=== PATIENT | female | born 1990 | race Hispanic/Latino ===

== ENCOUNTER → 2016-11-20 | Outpatient (CLI) | payer OTHER ==
[~2016-11-20] MED LIST: DOCU-143 PO; HYDR-3812 PO; OMEP20TA7 PO
--- NOTE | 2016-11-20 11:27 | Diagnostic Imaging Report ---
PROCEDURE: US Gallbladder. TECHNIQUE: Multiple real-time grayscale images were obtained over the right upper quadrant in various projections. INDICATION: Abdominal pain. FINDINGS: The pancreas is largely obscured. The liver is fairly homogeneous with no focal lesion. The CBD is obscured. The gallbladder demonstrates multiple mobile stones. No pericholecystic fluid or gallbladder wall thickening. The right kidney is 8.6 cm in length with no hydronephrosis or focal lesion. There is no significant fluid collection in the right upper quadrant. Sonographic Matute sign is reportedly positive. IMPRESSION: Multiple gallstones. Although no imaging findings otherwise of acute cholecystitis are present, sonographic Matute sign was reportedly positive. Correlate clinically. Dictated by: Dictated on workstation # [id number]
== END ==
LOC: RAD 09:29
PROVIDERS: ATTEND Nurse Practitioner Community Health
DX: K80.20 Calculus of gallbladder without cholecystitis without obstruction (principal)
CPT/HCPCS: 76705

== ENCOUNTER 2016-12-03 13:05 | Outpatient (CLI) | payer OTHER ==
[~2016-12-03] VITALS: Ht 162.6 cm; Wt 85.3 kg
[2016-12-03] MEDS ORDERED: OMEP20TA7 PO (13:17)
[2016-12-03 13:21] VITALS: BP 126/71
[2016-12-03 13:57] LABS: BASOPHILS % (AUTO) 0 % (0-10); EOSINOPHILS # (AUTO) 0.1 10^3/uL (0.0-0.3); EOSINOPHILS % (AUTO) 1 % (0-10); LYMPHOCYTES % (AUTO) 43 % (12-44); MEAN CORPUSCULAR HEMOGLOBIN 29 PG (25-34); MEAN CORPUSCULAR HGB CONC 34 G/DL (32-36); MEAN CORPUSCULAR VOLUME 83 FL (80-99); MONOCYTES # (AUTO) 0.4 X 10^3 (0.0-1.0); MONOCYTES % (AUTO) 5 % (0-12); NEUTROPHILS # (AUTO) 3.5 X 10^3 (1.8-7.8); NEUTROPHILS % (AUTO) 50 % (42-75); PLATELET COUNT 256 10^3/uL (130-400); RED BLOOD COUNT 4.52 10^6/uL (4.35-5.85); RED CELL DISTRIBUTION WIDTH 12.9 % (10.0-14.5); WHITE BLOOD COUNT 7.1 10^3/uL (4.3-11.0)
== END 2016-12-03 15:13 | disposition home or self-care (01) ==
LOC: PREOP 13:05
PROVIDERS: ATTEND Surgery
DX: Z01.812 Encounter for preprocedural laboratory examination (principal); Z11.2 Encounter for screening for other bacterial diseases; K80.20 Calculus of gallbladder without cholecystitis without obstruction
CPT/HCPCS: 36415; 85025; 87081

== ENCOUNTER 2016-12-06 07:40 | Day surgery (SDC) | payer OTHER ==
[~2016-12-06] VITALS: Ht 162.6 cm; Wt 85.3 kg
[~2016-12-06 07:40] MED LIST changes: -DOCU-143 PO; -HYDR-3812 PO
--- OUTSIDE RECORDS SUMMARY | 2016-12-06 07:48 | XMS REPORT | Continuity of Care Document ---
Author Author [facility] Organization [facility] Address Unknown Phone Unavailable Care Team Providers Care Rim Turning Finisher Name Role Phone [facility] PCP Insurance Providers Payer Name Policy Number Subscriber Name Relationship Self Pay Pending Leora Apprv [id number] Stephanie Thomas 16 Self / Same As Patient Advance Directives Directive Response Recorded Date/Time Advance Directives No 12/03/16 1:14pm Health Care Power of Health Policy Manager No 12/03/16 1:14pm Resuscitation Status Full Code 12/03/16 1:14pm Problems No problem information available. Medications Current Home Medications Medication Dose Units Route Directions Days/Qty Instructions Start Date Omeprazole 20 Mg 20 Mg Oral Daily 12/03/16 Social History Social History Problem Response Recorded Date/Time Alcohol Use Denies Use 12/03/2016 1:14pm Recreational Drug Use No 12/03/2016 1:14pm Recent Foreign Travel No 12/03/2016 1:13pm Recent Infectious Disease Exposure No 12/03/2016 1:13pm Sexually Transmitted Disease No 12/03/2016 1:14pm HIV/AIDS No 12/03/2016 1:14pm Smoking Status Never a Smoker 12/03/2016 1:14pm Recent Hopitalizations No 12/03/2016 1:14pm Sexually Transmitted Disease No 12/03/2016 1:14pm Query Response Start Date Stop Date Smoking Status Never a Smoker Hospital Discharge Instructions No hospital discharge instructions. Plan of Care Discharge Date 12/03/16 3:13pm Prescriptions See Medication Section Functional Status No functional status results. Allergies, Adverse Reactions, Alerts No known allergies. Immunizations No immunization records. Vital Signs Acute Vital Signs Vital Response Date/Time Pulse Rate (adult) 55 bpm (60 - 90) 12/03/2016 1:21pm Respiratory Rate 16 bpm (12 - 24) 12/03/2016 1:21pm O2 Sat by Pulse Oximetry 100 % (88 - 100) 12/03/2016 1:21pm Blood Pressure 126/71 mm Hg 12/03/2016 1:21pm Blood Pressure Mean 89 mm Hg 12/03/2016 1:21pm Pain Numeric Pain Scale 0-No Pain 12/03/2016 1:21pm Height (Feet) 5 feet 12/03/2016 1:12pm Height (Inches) 4.00 inches 12/03/2016 1:12pm Height (Calculated Centimeters) 162.099964 cm 12/03/2016 1:12pm Weight (Pounds) 188 pounds 12/03/2016 1:12pm Weight (Ounces) 1.0 oz 12/03/2016 1:12pm Weight (Calculated Grams) 85270.72 gm 12/03/2016 1:12pm Weight (Calculated Kilograms) 85.240699 kilograms 12/03/2016 1:12pm Calculated BMI 32.3 12/03/2016 1:12pm Results Pending Laboratory Results Test Name Collection Date/Time Procedures No known history of procedures. Encounters Encounter Location Arrival/Admit Date Discharge/Depart Date Attending Provider Departed Clinic [facility] 12/03/16 1:05pm 12/03/16 3: 13pm BAKARI PERKINS DO Registered Clinic [facility] 11/20/16 9:29am TERESA PLASENCIA
--- OUTSIDE RECORDS SUMMARY | 2016-12-06 07:48 | XMS REPORT | Continuity of Care Document ---
Author Author [facility] Organization [facility] Address Unknown Phone Unavailable Care Team Providers Care Girls Swimming Coach Name Role Phone [facility] PCP Insurance Providers Payer Name Policy Number Subscriber Name Relationship Self Pay Pending Leora Apprv [id number] Stephanie Thomas 16 Self / Same As Patient Advance Directives Directive Response Recorded Date/Time Advance Directives No 12/03/16 1:14pm Health Care Power of Boiler House Inspector No 12/03/16 1:14pm Resuscitation Status Full Code [...] 4.00 inches 12/03/2016 1:12pm Height (Calculated Centimeters) 162.081491 cm 12/03/2016 1:12pm Weight (Pounds) 188 pounds 12/03/2016 1:12pm Weight (Ounces) 1.0 oz 12/03/2016 1:12pm Weight (Calculated Grams) 41996.72 gm 12/03/2016 1:12pm Weight (Calculated Kilograms) 85.967479 kilograms 12/03/2016 1:12pm Calculated BMI 32.3 12/03/2016 1:12pm Results Pending Laboratory Results Test Name Collection Date/Time Procedures No known history of procedures. Encounters Encounter Location Arrival/Admit Date Discharge/Depart Date Attending Provider Departed Clinic [facility] 12/03/16 1:05pm 12/03/16 3: 13pm BAKARI PERKINS DO Registered Clinic [facility] 11/20/16 9:29am TERESA PLASENCIA
[2016-12-06] MEDS ORDERED: FAMOTIDINE 20MG/2ML IV (PEPCID) IV ONE (08:15)
[2016-12-06] MEDS ORDERED: ceFAZolin 2 GM IV (SDC ONLY) 50 ML ONE (08:18)
[2016-12-06] MEDS: LACTATED RINGERS 1,000 ML IV PRN ×2 (08:40→10:15)
[2016-12-06 08:51] VITALS: BP 119/72
[2016-12-06] MEDS ORDERED: LIDOCAINE 1% INJ 20 ML (XYLOCAINE) VIAL ONE (08:57)
[2016-12-06] MEDS ORDERED: BUPIVACAINE 0.5% 30 ML (SENSORCAINE) VIAL ONE (08:57)
[2016-12-06] MEDS ORDERED: ceFAZolin 2 GM IV (SDC ONLY) 50 ML IV ONE (09:00)
[2016-12-06] MEDS ORDERED: proPOfol 200 MG/20 ML (DIPRIVAN) VIAL IV ONE (09:28)
[2016-12-06] MEDS ORDERED: SEVOFLURANE (ULTANE) 15 ML INHAL SOLN ONE ×4 (09:28→11:10)
[2016-12-06] MEDS ORDERED: DEXAMETHASONE PF 10 MG/ML (DECADRON) VIAL ONE (09:28)
[2016-12-06] MEDS ORDERED: ONDANSETRON 4 MG/2 ML (SDV) Z0FRAN ONE (09:28)
[2016-12-06] MEDS ORDERED: LACTATED RINGERS 1,000 ML IV ONE ×2 (09:28→10:19)
[2016-12-06] MEDS ORDERED: LIDOCAINE PF 2% 10 ML (XYLOCAINE) AMP ONE (09:28)
[2016-12-06] MEDS ORDERED: fentaNYL INJECTION 100 MCG/2 ML AMP ONE (09:29)
[2016-12-06] MEDS ORDERED: MIDAZOLAM 2 MG/2 ML (VERSED) VIAL ONE (09:29)
--- NOTE | 2016-12-06 09:42 | Progress Note-Pre Operative ---
Pre-Operative Progress Note H&P Reviewed The H&P was reviewed, patient examined and no changes noted. Date H&P Reviewed: Dec 06, 2016 Time H&P Reviewed: 09:42 Pre-Operative Diagnosis: SYMPTOMATIC CHOLELITHIASIS BAKARI PERKINS DO Dec 06, 2016 09:42
--- NOTE | 2016-12-06 11:04 | Progress Note-Post Operative ---
Post-Operative Progess Note Optician Dr. Garcia Pre-Operative Diagnosis SYMPTOMATIC CHOLELITHIASIS Post-Operative Diagnosis same Post-Op Procedure Note Date of Procedure: Dec 06, 2016 Name of Procedure: lap miroslava c ioc Procedure Note/Findings see note Anesthesia Type general Estimated blood loss (mL): minimal Specimen(s) collected gallbladder BAKARI PERKINS DO Dec 06, 2016 11:04
[2016-12-06] MEDS ORDERED: DOCU-143 PO (11:05)
[2016-12-06] MEDS ORDERED: HYDR-3812 PO (11:05)
--- NOTE | 2016-12-06 11:06 | Discharge Inst-Simple/Standard ---
Discharge Inst-Standard Discharge Medications New, Converted or Re-Newed RX: RX on Chart Patient Instructions/Follow Up Plan of Care/Instructions/FU: 2 weeks Radha Activity as Tolerated: No Discharge Diet: Regular Diet Other Inst to Patient Follow up Appt: Make appointment for 2 weeks. Instructions: No lifting greater than 10 pounds. No strenuous activity. May shower in 24 hours, no tub bath or soaking. Use incentive spirometer at home as directed. No Smoking Skin/Wound Care: May remove bandages in 24 hours. You need to leave the white strips over incision on they will fall off on their own. Symptoms to Report: Appetite Changes, Extremity Discoloration, Numbness/Tingling, Swelling Increased , Bleeding Excessive, Eyesight Changes, Pain Increased, Urine Color Change, Constipation(Persistent), Fever over 101 degree F, Pain/Pressure in chest, Urinating Difficulty, Cough Up/Vomit Blood, Heart Beat Irreg/Pounding, Pain/ Pressure in jaw, Vaginal Bleeding Increase, Cramps in feet or legs, Lightheadedness, Pain/Pressure in shoulder, Diarrhea(Persistent), Memory Changes Suddenly, Questions/Concerns, Weight gain consecutive days, Dizziness/ Fainting, Nausea/Vomiting, Shortness of Breath, Weight gain over 2 pounds. If eyes or skin turn yellow notify physician. If questions or concerns contact your physician Or seek help at emergency department. BAKARI PERKINS DO Dec 06, 2016 11:06
[2016-12-06] MEDS ORDERED: HYDROcodone/APAP 5 MG/325 MG (LORTAB) TAB PO PRN (11:15)
[2016-12-06] MEDS ORDERED: MEPERIDINE (DEMEROL) INJ 50 MG/ML IVP PRN (11:30)
[2016-12-06] MEDS ORDERED: ONDANSETRON 4 MG/2 ML (SDV) Z0FRAN IVP PRN (11:30)
[2016-12-06] MEDS: morphine INJ 10 MG/ML 1ML (SYR OR VIAL) IVP PRN ×2 (11:37→11:54)
--- NOTE | 2016-12-06 12:09 | Diagnostic Imaging Report ---
EXAMINATION: Intraoperative cholangiogram. INDICATION: Cholecystectomy performed by Dr. Garcia. Abdominal pain. 8 seconds of fluoroscopy time utilized. 4 cc of Omnipaque 300 is used. FINDINGS: Injection through the cystic duct is performed with contrast filling the CBD and intrahepatic ducts which are normal in caliber. There is prompt emptying of contrast into the duodenum with no evidence of obstruction or filling defect. IMPRESSION: No evidence of CBD stone or obstruction. Dictated by: Dictated on workstation # [id number]
[2016-12-06 12:20] VITALS: BP 129/79
[2016-12-06 12:50] VITALS: BP 129/99
[2016-12-06 13:20] VITALS: BP 128/72
[2016-12-06 15:05] VITALS: BP 127/70
--- NOTE | 2016-12-07 10:35 | OPERATIVE REPORT ---
PROCEDURE PHYSICIAN: BAKARI PERKINS DATE OF PROCEDURE: 12/06/2016 PREOPERATIVE DIAGNOSIS: Symptomatic cholelithiasis. POSTOPERATIVE DIAGNOSIS: Symptomatic cholelithiasis. PROCEDURE: Laparoscopic cholecystectomy with intraoperative cholangiogram. SURGEON: Radha. SMOKE ROOM OPERATOR: Dr. Garcia, assist in retraction, dissection, and closure. ANESTHESIA: General. ESTIMATED BLOOD LOSS: Minimal. COMPLICATIONS: None. INDICATIONS: The patient is a 26-year-old female who has been having right upper quadrant pain. Ultrasound demonstrating cholelithiasis. The patient understands the risks and benefits of the procedure and wished to proceed with procedure. Consent was signed on the chart. PROCEDURE: The patient was taken to the operating suite. She was prepped and draped in the sterile fashion. A surgical pause was performed. Luan technique was used to enter the abdomen just above the umbilicus. A skin incision was made and cautery was used to dissect down to the fascia, which was then scored grasped, elevated. The abdomen was then entered. 0 Vicryl suture was placed in a [id number] fashion. The trocar was then placed and pneumoperitoneum was achieved. This was secured with 0 Vicryl. Under direct visualization of the laparoscope, a 5 minute trocar was placed in the subxiphoid region and two 5-mm trocars were placed in the right upper quadrant. The gallbladder was grasped, elevated. Some adhesions were present, which were taken down bluntly. The cystic duct and cystic artery were then dissected around. Clips were placed on the cystic artery proximally and distally. The clip was placed on the distal portion of the cystic duct and the duct was partially transected. Arrow catheter was inserted into the duct and then insufflated and cholangiogram was performed. There were no filling defects. Contrast made its way into the duodenum without difficulty. The catheter was removed. Clips were placed on proximal portion and then the duct was transected completely and the cystic artery was transected completely. Hook cautery was used to dissect the gallbladder from the gallbladder fossa. As this was being done the posterior branch of cystic artery was cut into. Clips were placed on the proximal and distal portion of this and the gallbladder was continued to be dissected off the gallbladder using hook cautery. Hemostasis had been achieved. Once completely removed, the gallbladder was placed in an Endobag and removed through a 12 mm trocar site. Copious amounts of irrigation was used to irrigate the abdomen. Hemostasis had been achieved. The 12 mm trocar fascial defect was then closed using 0 Vicryl suture that were already in place. The abdomen was then desufflated. Trocars were removed. A total of 20 mL of 0.5% Marcaine 1% lidocaine 50:50 ratio was used to anesthetize the trocar sites. The skin was then closed using 4-0 Vicryl in a subcuticular fashion. The area was washed and dried. Mastisol and Steri-Strips were applied and sterile bandages were applied. The patient tolerated the procedure well without any complications. She was taken to recovery room in stable condition. Job ID: [id number] Dictated Date: 12/06/2016 11:10:25 Dispatch Specialist Date: 12/07/2016 10:27:44 / kasia
== END 2016-12-06 15:05 | disposition home or self-care (01) ==
LOC: SDC 07:40
PROVIDERS: ATTEND Surgery
DX: K80.10 Calculus of gallbladder with chronic cholecystitis without obstruction (principal)
CPT/HCPCS: 84703